=== PATIENT | female | born 1960 | race African-American/Black ===

== ENCOUNTER 2024-08-10 05:46 | Observation (INO) | payer OTHER ==
[2024-08-07 16:44] LABS: BASOPHILS % 0.5 % (0.0-1.0); EOSINOPHILS # (AUTO) 0.1 (0.0-0.4); EOSINOPHILS % 2.1 % (0.0-6.0); HEMATOCRIT 42.3 % (34.2-44.1); HEMOGLOBIN 13.2 g/dL (12.0-16.0); LYMPHOCYTES # (AUTO) 2.2 (1.0-3.2); LYMPHOCYTES % 34.3 % (18.0-39.1); MEAN CORPUSCULAR HEMOGLOBIN 27.3 pg (28-32); MEAN CORPUSCULAR HGB CONC 31.2 g/dL (31-35); MEAN CORPUSCULAR VOLUME 87.6 fL (81-99); MONOCYTES # (AUTO) 0.6 (0.2-0.8); MONOCYTES % 8.8 % (4.4-11.3); NEUTROPHILS # (AUTO) 3.4 (2.1-6.9); NEUTROPHILS % 53.7 % (38.7-80.0); PLATELET COUNT 208 x10e3/uL (140-360); RED BLOOD COUNT 4.83 x10e6/uL (3.6-5.1); WHITE BLOOD COUNT 6.33 x10e3/uL (4.8-10.8)
[2024-08-07 17:02] LABS: INR 0.89; PROTHROMBIN TIME 12.6 seconds (11.9-14.5)
[2024-08-07 17:03] LABS: PARTIAL THROMBOPLASTIN TIME 29.7 seconds (23.8-35.5)
[2024-08-07 17:09] LABS: CALCIUM 9.3 mg/dL (8.4-10.2); CREATININE, SERUM 0.87 mg/dL (0.57-1.11)
[~2024-08-10] VITALS: Ht 177.8 cm; Wt 108.9 kg
[2024-08-10] VITALS (7 sets, daily range): BP systolic 119–173; BP diastolic 67–98; PULSE 72–92; RESP 18–20; TEMP 97.2–98.5; O2SAT 94–99
[~2024-08-10 05:46] MED LIST: CRESTOR40 MG PO; GLIMEPIRIDE2 MG PO; LISINOPRIL5 MG PO; RYBELSUS3 MG PO; VITAMIN D31250 MCG PO; XIGDUO XR 10 M1 EAC1 PO
[2024-08-10] MEDS: CEFAZOLIN SODIUM 2 GM ONE (06:07)
[2024-08-10] MEDS: LACTATED RINGER'S 1,000 ML ONE (06:07)
[2024-08-10] MEDS ORDERED: PROPOFOL IV EMULSION 10 MG/ML 20 ML VIAL ONE ×3 (07:36→09:54)
[2024-08-10] MEDS ORDERED: LIDOCAINE HCL 2% LOCAL INJ 5 ML SDV VIAL INJ ONE (07:36)
[2024-08-10] MEDS ORDERED: ROCURONIUM BROMIDE 1 ML IV ONE ×2 (07:36→07:39)
[2024-08-10] MEDS ORDERED: FENTANYL CITRATE/PF 100MCG/2 ML INJ ONE (07:36)
[2024-08-10] MEDS ORDERED: ACETAMINOPHEN 1000 MG/100 ML 100 ML IV ONE (07:36)
[2024-08-10] MEDS ORDERED: LIDOCAINE HCL (LTA) 4 ML SOLN ONE (07:36)
[2024-08-10] MEDS ORDERED: ONDANSETRON HCL INJ 2MG/ML 2ML 2 MG/ML VIAL ONE (08:33)
[2024-08-10] MEDS ORDERED: METOCLOPRAMIDE HCL 10 MG/2ML VIAL ONE (08:33)
[2024-08-10] MEDS ORDERED: DEXAMETHASONE SOD PHOS INJ 4 MG/ML SDV ONE (08:33)
[2024-08-10] MEDS ORDERED: PHENYLEPHRINE HCL 1% 10 MG/ML VIAL ONE (08:42)
[2024-08-10] MEDS ORDERED: GLYCOPYRROLATE INJ 0.2 MG/ML VIAL ONE (08:44)
[2024-08-10] MEDS ORDERED: SUGAMMADEX SODIUM 200 MG/2 ML VIAL IV ONE ×2 (08:56)
[2024-08-10] MEDS ORDERED: HYDROCODON-ACE1 EA12 PO (10:28)
[2024-08-10] MEDS ORDERED: OXYCODONE/ACETAMINOPHEN 5-325 1 EACH TABLET PO PRN (10:30)
[2024-08-10] MEDS ORDERED: ONDANSETRON HCL INJ 2MG/ML 2ML 2 MG/ML VIAL IV PRN (10:30)
[2024-08-10] MEDS ORDERED: CARISOPRODOL 350 MG TAB PO PRN (10:30)
[2024-08-10] MEDS ORDERED: Morphine 10mg syringe 10 MG/ML INJ IM PRN (10:30)
[2024-08-10] MEDS ORDERED: PROMETHAZINE HCL (IM) 25 MG/ML VIAL IM PRN (10:30)
[2024-08-10] MEDS ORDERED: MAGNESIUM/ALUMINUM/SIMETHICONE 30 ML UDC PO PRN (10:30)
[2024-08-10] MEDS ORDERED: ACETAMINOPHEN 325 MG TAB PO PRN (10:30)
[2024-08-10] MEDS ORDERED: HYDROMORPHONE 2MG/ML IV PRN (10:30)
[2024-08-10] MEDS: HYDROMORPHONE 1MG/1ML INJ ONE (10:35)
[2024-08-10] MEDS: OXYCODONE/ACETAMINOPHEN 5-325 1 EACH TABLET PO PRN (12:16)
[2024-08-10] MEDS: LACTATED RINGER'S 1,000 ML IV SCH (12:17)
[2024-08-10] MEDS: LISINOPRIL 2.5 MG TAB PO SCH (14:44)
[2024-08-10] MEDS: SCOPOLAMINE 1 MG PATCH ONE (17:42)
[2024-08-10] MEDS ORDERED: ZOLPIDEM TARTRATE 5 MG TAB PO PRN (21:00)
[2024-08-10] MEDS: CRESTOR 10MG PO SCH (22:02)
[2024-08-11 03:32] VITALS: BP 123/59; PULSE 85; RESP 18; TEMP 97.5; O2SAT 97
[2024-08-11 08:09] VITALS: BP 120/64; PULSE 73; RESP 18; TEMP 97.6; O2SAT 96
[2024-08-11] MEDS: METFORMIN HCL 500 MG TAB CR PO SCH (09:12)
[2024-08-11] MEDS: GLIMEPIRIDE 2 MG TAB PO SCH (09:12)
[2024-08-11 11:20] VITALS: BP 125/65; PULSE 75; RESP 18; TEMP 98; O2SAT 97
== END 2024-08-11 11:32 | disposition home or self-care (01) ==
LOC: OR 05:46 → PACU V 10:41 → MED/SURG 11:02
PROVIDERS: ADMIT Neurological Surgery; ATTEND Neurological Surgery
DX: M50.122 Cervical disc disorder at C5-C6 level with radiculopathy (principal); M50.123 Cervical disc disorder at C6-C7 level with radiculopathy; I10 Essential (primary) hypertension; E11.9 Type 2 diabetes mellitus without complications; Z01.810 Encounter for preprocedural cardiovascular examination; Z01.812 Encounter for preprocedural laboratory examination; Z01.818 Encounter for other preprocedural examination; E78.5 Hyperlipidemia, unspecified; Z79.84 Long term (current) use of oral hypoglycemic drugs
CPT/HCPCS: 20931; 22551; 22552; 22845; 36415 ×3; 71046; 72040; 76000; 80048; 82948 ×2; 85025; 85610; 85730; 86850; 86900; 88304; 88311; 93005; C1763; G0378 ×2; J0131; J0690; J1100; J1171; J2003; J2371; J2405; J2704; J2765; J3010; J7121